=== PATIENT | female | born 1965 | race African-American/Black ===

== ENCOUNTER 2024-12-13 09:18 | Inpatient (IN) | payer MEDICARE, OTHER ==
[~2024-12-13] VITALS: Ht 175.3 cm; Wt 115.5 kg
--- NOTE | 2024-12-13 10:14 | ED.PDOC ---
HPI Comments This is a 59 year old female presenting to the ED with chief complaint of chest pain. Patient reports that she has been experiencing chest pain with associated dizzy spells and fatigue for the past 5 days since visiting family in the [facility]. Patient notes she is currently on Xarelto for previous PE she had. Patient denies any SOB, N/V, abdominal pain, headache, or syncope. Chief Complaint: General Weakness Time Seen by MD: 10:13 Reviewed Notes: Nurses Notes, Medications, Allergies Allergies: Coded Allergies: Morphine (Verified Allergy, Unknown, 12/13/24) Information Source: Patient Mode of Arrival: Ambulatory Severity: Moderate Timing: Hours Duration: Since onset Prehospital treatment: None Location: Chest (L) Radiation: No Radiation Quality: Aching Onset: At Rest Cardiac Risk Factors: HTN PE Risk Factors: None Past Medical History PAST MEDICAL HISTORY: HTN, PE Surgical History: Surgical History (Other): Knee surgery SPECIAL TAX AUDITOR History: Denies all SPECIAL TAX AUDITOR Hx Family History Family History: Reviewed,noncontributory to illness Social History Smoker: Non-Smoker Alcohol: Denies ETOH Use Drugs: Denies Drug Use Lives In: Home Constitutional: reports: fatigue; denies: chills, diaphoresis, fever, malaise, sweats, weakness, others EENTM: denies: blurred vision, double vision, ear bleeding, ear discharge, ear drainage, ear pain, ear ringing, eye pain, eye redness, hearing loss, mouth pain, mouth swelling, nasal discharge, nose bleeding, nose congestion, nose pa in, photophobia, tearing, throat pain, throat swelling, voice changes, others Respiratory: denies: cough, hemoptysis, orthopnea, SOB at rest, shortness of breath, SOB with excertion, stridor, wheezing, others Cardiovascular: reports: chest pain, dizzy spells; denies: diaphoresis, Dyspnea on exertion, edema, irregular heart beat, left arm pain, lightheadedness, palpitations, PND, syncope, others Gastrointestinal: denies: abdomen distended, abdominal pain, blood streaked bowels, constipated, diarrhea, dysphagia, difficulty swallowing, hematemesis, melena, nausea, poor appetite, poor fluid intake, rectal bleeding, rectal pain, vomiting, others Genitourinary: denies: abnormal vagina bleeding, burning, dyspareunia, dysuria, flank pain, frequency, hematuria, incontinence, pain, , vagina discharge, urgency, others Neurological: denies: dizziness, fainting, headache, left sided numbness, left sided weakness, numbness, paresthesia, pre-existing deficit, right sided numbness, right sided weakness, seizure, speech problems, tingling, tremors, weakness, others Musculoskeletal: denies: back pain, gout, joint pain, joint swelling, muscle pain, muscle stiffness, neck pain, others Integumetry: denies: bruises, change in color, change in hair/nails, dryness, laceration, lesions, lumps, rash, wounds, others Allergic/Immunocompromised: denies: Difficulty Healing, Frequent Infections, Hives, Itching, others Hematologic/Lymphatic: denies: anemia, blood clots, easy bleeding, easy bruising, swollen glands, others Endocrine: denies: excessive hunger, excessive sweating, excessive thirst, excessive urination, flushing, intolerance to cold, intolerance to heat, unexplained weight gain, unexplained weight loss, others Psychiatric: denies: anxiety, bipolar disorder, depression, hopeless, panic disorder, schizophrenia, sleepless, suicidal, others All Other Systems: Reviewed and Negative Physical Exam General Appearance: Moderate Distress, Normal HEENT: Normal ENT Inspection, Pharynx Normal, TMs Normal Neck: Full Range of Motion, Non-Tender, Normal, Normal Inspection Respiratory: Chest Non-Tender, Lungs Clear, No Accessory Muscle Use, No Respiratory Distress, Normal Breath Sounds Cardiovascular: No Edema, No JVD, No Murmur, No Gallop, Normal Peripheral Pulses, Regular Rate/Rhythm Breast Exam: Deferred Gastrointestinal: No Organomegaly, Non Tender, No Pulsatile Mass, Normal Bowel Sounds, Soft Genitalia: Deferred Pelvic: Deferred Rectal: Deferred Extremities: No calf tenderness, Normal capillary refill, Normal inspection, Normal range of motion, Non-tender, No pedal edema Musculoskeletal : Apperance: Normal Neurologic: Alert, wildlife conservationist II-XII nml as Tested, No Motor Deficits, Normal Affect, Normal Mood, No Sensory Deficits Cerebellar Function: Normal Reflexes: Normal Skin: Dry, Normal Color, Warm Peripheral Pulses: 3+ Radial (R), 3+ Radial (L) Lymphatic: No Adenopathy Was a procedure done? Was a procedure done?: No CP Differential Dx Differential Diagnosis: A-fib, A-Flutter, Angina, Anxiety / Panic Attack, Atrial Dysrhythmia, Electrolyte Disorder X-Ray, Labs, Meds, VS Vital Signs Date Time Temp Pulse Resp B/P (MAP) Pulse Ox O2 Delivery O2 Flow Rate FiO2 12/13/24 09:22 97.3 73 18 129/91 97 97.3 Lab Test 12/13/24 10:57 Range/Units White Blood Count Pending Red Blood Count Pending Hemoglobin Pending Hematocrit Pending Mean Corpuscular Volume Pending Mean Corpuscular Hemoglobin Pending Mean Corpuscular Hemoglobin Concent Pending Red Cell Distribution Width Pending Platelet Count Pending Mean Platelet Volume Pending Neutrophils (%) (Auto) Pending Lymphocytes (%) (Auto) Pending Monocytes (%) (Auto) Pending Basophils (%) (Auto) Pending Neutrophils # (Auto) Pending Lymphocytes # (Auto) Pending Monocytes # (Auto) Pending Sodium Level Pending Potassium Level Pending Chloride Level Pending Carbon Dioxide Level Pending Anion Gap Pending Blood Urea Nitrogen Pending Creatinine Pending Glomerular Filtration Rate Calc Pending BUN/Creatinine Ratio Pending Serum Glucose Pending Calcium Level Pending Troponin I High Sensitivity Pending Patient alert. Came in for chest pain. Has multiple other symptoms. Saturation pristine on room air. Possibly will need stress test. Abdomen is soft. Establish intravenous access. Was given fluids. Explained to the patient. Continue monitoring. Time of 1ST Reevaluation: 11:11 Reevaluation 1ST: Unchanged Patient Education/Counseling: Diagnosis, Treatment Family Education/Counseling: No Family Present SEPSIS Sepsis Screen Date sepsis recognized/suspect: Dec 13, 2024 Time Sepsis recognized/suspect: 924 Recent Procedure: No On Antibiotic Therapy: No Respiratory Rate >20: No Heart Rate >90: No Temp<36 C (96.8 F) or >38.3 C: No SBP <90 or MAP <65 mmHG: No New Acute Mental Status Change: No Is the patient on CPAP, BIPAP,: No Physician Orders Troponin-I Hs (12/13/24 10:17) Complete Blood Count (12/13/24 10:17) Urinalysis (12/13/24 10:17) Basic Metabolic Panel (12/13/24 10:17) Vital Signs Date Time Temp Pulse Resp B/P (MAP) Pulse Ox O2 Delivery O2 Flow Rate FiO2 12/13/24 09:22 97.3 73 18 129/91 97 97.3 Laboratory Tests Test 12/13/24 10:57 White Blood Count Pending Departure 1 Departure Time of Disposition: 11:36 Impression: Primary Impression: Chest pain of unknown etiology Disposition: ADMITTED INPATIENT Admit to: Med Surg Condition: Guarded Critical Care Note Critical Care Time?: Yes (90 min-critical care time only) Stability Stability form required: No Heart Score Heart Score: Heart Score Response (Comments) Value History Moderate Suspicious 1 EKG Normal 0 Age 45-64 1 Risk Factors 1 or 2 risk factors 1 Troponin Normal limit 0 Total 3 I personally scribed for MARISOL WOODARD MD ([email or web address]) on 12/13/24 at 10:14. Electronically submitted by Sylvain Alves ([email or web address]). MARISOL WOODARD MD Dec 13, 2024 10:14
[2024-12-13 11:41] LABS: Chloride 102 mmol/L (98-107); Potassium 3.7 mmol/L (3.5-5.1); Sodium 140 mmol/L (136-145)
[2024-12-13 11:42] LABS: Anion Gap 8 (5-15); Calcium 9.5 mg/dL (8.7-10.4); Carbon Dioxide 30 mmol/L (20-31)
[2024-12-13] MEDS: SODIUM CHLORIDE 0.9% 1,000 ML IV ONE (11:45)
[2024-12-13 11:47] LABS: BUN/Creatinine Ratio 12.6 (10.0-20.0); Blood Urea Nitrogen 15 mg/dL (9-23); Glucose 92 mg/dL (74-106); Hematocrit 42.6 % (36.0-46.0); Hemoglobin 14.1 g/dL (12.2-16.2); Mean Corpuscular Hemoglobin 27.8 pg (28.0-32.0); Mean Corpuscular Volume 83.7 fL (80.0-100.0); Nucleated Red Blood Cells % 0.0 %
[2024-12-13 12:06] LABS: Urine Protein, UAD Negative (Negative)
[2024-12-13] MEDS ORDERED: ONDANSETRON HCL 4 MG/2 ML VIAL IV PRN (16:45)
[2024-12-13] MEDS ORDERED: NITROGLYCERIN 0.4 MG SL TAB SL PRN (16:45)
[2024-12-13] MEDS ORDERED: MORPHINE SULFATE INJ 2 MG/ml SYRG IV PRN (16:45)
--- NOTE | 2024-12-13 17:37 | DVH ---
CHEST RADIOGRAPH Indication: chest pain Technique: XY CHEST XRAY 1 VIEW Comparison: None FINDINGS: The cardiac silhouette is unremarkable. The lungs demonstrate right midlung atelectasis/scarring. The pulmonary vasculature is unremarkable. There is no pleural effusion. There is no pneumothorax. Aort ic atherosclerotic disease. IMPRESSION: As above
--- NOTE | 2024-12-13 17:42 | DVHHP2 ---
History of Present Illness Reason for Visit: Chest pain History of Present Illness 59-year-old female presents for evaluation of chest pain. Patient reports undergoing a lot of stress due to recent family loss. She reports a three day history of chest pain which she describes as pressure-like substernal nonradiating with associated dizziness and shortness for breath. She also feels anxious. Denies cough or fever. No nausea or vomiting. No other acute complaints reported. Past Medical History Hypertension, rheumatoid arthritis and pulmonary embolism Past Surgical History Knee surgery Family History Noncontributory Smoke: No ALCOHOL: none Drugs: None Lives: with Family Review of Systems Review of Systems Review of systems are currently negative otherwise addressed in HPI. Allergies: Coded Allergies: Morphine (Verified Allergy, Unknown, 12/13/24) Medications Current Medications Medications Dose Ordered Sig/Glenn Route Start Time Stop Time Status Last Admin Dose Admin Aspirin 81 mg DAILY PO 12/14/24 10:00 Atorvastatin Calcium 10 mg HS PO 12/13/24 22:00 Ondansetron HCl 4 mg Q4HP PRN IV 12/13/24 16:45 Acetaminophen 650 mg Q6HP PRN PO 12/13/24 16:45 Nitroglycerin 0.4 mg Q5MINP PRN SL 12/13/24 16:45 Morphine Sulfate 2 mg Q30M PRN IV 12/13/24 16:45 Hold Exam Vital Signs Vital Signs Date Time Temp Pulse Resp B/P (MAP) Pulse Ox O2 Delivery O2 Flow Rate FiO2 12/13/24 14:35 97.5 71 14 155/89 (111) 98 97.5 Exam Gen: 59-year-old female in mild distress Skin: Warm, dry, normal color and texture, no rash. HEENT: Normocephalic atraumatic, mucous membranes moist and pink. Neck: Cervical and supraclavicular nodes normal without enlargement, trachea is midline, thyroid gland is normal without masses. Pulmonary: Clear to auscultation and percussion bilaterally. Cardiac: Regular rate and rhythm. No murmur Abdomen: Soft, nontender, nondistended, bowel sounds present all 4 quadrants, no guarding, no rigidity, no organomegaly. Extremities: No cyanosis, clubbing, no edema Neuro: Cranial nerves II through XII grossly intact, normal affect and speech, no focal motor deficits. Labs/Xrays Labs Test 12/13/24 16:54 12/13/24 10:57 12/13/24 00:00 Range/Units Troponin I High Sensitivity < 3 L </=34 ng/L White Blood Count 5.8 4.4-10.8 10^3/uL Red Blood Count 5.08 4.0-5.20 10^6/uL Hemoglobin 14.1 12.2-16.2 g/dL Hematocrit 42.6 36.0-46.0 % Mean Corpuscular Volume 83.7 80.0-100.0 fL Mean Corpuscular Hemoglobin 27.8 L 28.0-32.0 pg Mean Corpuscular Hemoglobin Concent 33.3 32.0-36.0 g/dL Red Cell Distribution Width 13.6 11.8-14.3 % Platelet Count 277 140-450 10^3/uL Mean Platelet Volume 8.0 6.9-10.8 fL Neutrophils (%) (Auto) 53.3 37.0-80.0 % Lymphocytes (%) (Auto) 35.4 10.0-50.0 % Monocytes (%) (Auto) 10.2 0.0-12.0 % Eosinophils (%) (Auto) 0.6 0.0-7.0 % Basophils (%) (Auto) 0.5 0.0-2.0 % Neutrophils # (Auto) 3.1 1.6-8.6 10 ^3/uL Lymphocytes # (Auto) 2.0 0.4-5.4 10 ^3/uL Monocytes # (Auto) 0.6 0-1.3 10 ^3/uL Eosinophils # (Auto) 0 0-0.8 10 ^3/uL Basophils # (Auto) 0 0-0.2 10 ^3/uL Nucleated Red Blood Cells 0.0 % Sodium Level 140 136-145 mmol/L Potassium Level 3.7 3.5-5.1 mmol/L Chloride Level 102 98-107 mmol/L Carbon Dioxide Level 30 20-31 mmol/L Anion Gap 8 5-15 Blood Urea Nitrogen 15 9-23 mg/dL Creatinine 1.19 H 0.550-1.02 mg/dL Glomerular Filtration Rate Calc 53 >90 mL/min BUN/Creatinine Ratio 12.6 10.0-20.0 Serum Glucose 92 74-106 mg/dL Calcium Level 9.5 8.7-10.4 mg/dL Urine Color Light-yellow Yellow Urine Clarity Clear Clear Urine pH 6.0 5.0-9.0 Urine Specific [place] 1.017 1.001-1.035 Urine Protein Negative Negative Urine Ketones Negative Negative Urine Blood Negative Negative /uL Urine Nitrite Negative Negative Urine Bilirubin Negative Negative Urine Urobilinogen Normal Negative mg/dL Urine Leukocyte Esterase Negative Negative /uL Urine RBC 1 0 - 4 /hpf Urine Microscopic WBC 2 0-5 /HPF Urine Squamous Epithelial Cells Few <5 /hpf Urine Bacteria None seen None Seen /hpf Urine Glucose Normal Normal mg/dL SEPSIS Sepsis Screen Date sepsis recognized/suspect: Dec 13, 2024 Time Sepsis recognized/suspect: 924 Recent Procedure: No On Antibiotic Therapy: No Respiratory Rate >20: No Heart Rate >90: No Temp<36 C (96.8 F) or >38.3 C: No SBP <90 or MAP <65 mmHG: No New Acute Mental Status Change: No Is the patient on CPAP, BIPAP,: No Physician Orders Chest Xray 1 View (12/13/24 16:38) Aspirin Tablet (12/14/24 10:00) Atorvastatin (Lipitor) (12/13/24 22:00) Admit (12/13/24 16:38) Ondansetron Hcl (Zofran) (12/13/24 16:45) Cardiac Diet-2gna,Lofat,Lochol (12/13/24 Dinner) Echo 2d Mode Cardiac Dop (12/13/24 16:38) Condition: Fair (12/13/24 16:38) Acetaminophen Tablet (Tylenol Tablet) (12/13/24 16:45) Bedrest With Bathroom Privileg (12/13/24 16:38) Nitroglycerin Sublingual (Ntrostat Subli (12/13/24 16:45) Morphine Sulfate Injection (12/13/24 16:45) Stat Ekg For Chest Pain (12/13/24 16:38) Notify Md Of Changes From Base (12/13/24 16:38) Sole Trimmer For 24 Hours (12/13/24 16:38) Emergency Dysrhythmia Protocol (12/13/24 16:38) Rhythm Strips Once Every Shift (12/13/24 16:38) Oxygen By Nasal Cannula (12/13/24 16:38) D-Dimer (12/13/24 16:38) Vital Signs Date Time Temp Pulse Resp B/P (MAP) Pulse Ox O2 Delivery O2 Flow Rate FiO2 12/13/24 14:35 97.5 71 14 155/89 (111) 98 97.5 12/13/24 12:18 68 18 158/76 (103) 98 12/13/24 12:18 68 Laboratory Tests Test 12/13/24 10:57 White Blood Count 5.8 10^3/uL (4.4-10.8) Medications Medications Dose Ordered Sig/Glenn Route Start Time Stop Time Status Last Admin Dose Admin Aspirin 325 mg ONCE ONCE PO 12/13/24 11:45 12/13/24 11:46 DC 12/13/24 11:45 325 MG Sodium Chloride 1,000 ml @ 1,000 mls/hr Q1H ONCE IV 12/13/24 11:45 12/13/24 12:44 DC 12/13/24 11:45 1,000 MLS/HR Assessment/Plan Assessment/Plan Assessment Chest pain rule out ACS Hypertension Anxiety Plan Admit the patient to telemetry to the hospitalist Echocardiogram pending Resume home medications Chest x-ray pending Continue treatment per orders. Plan discussed with: Patient My Orders Orders - ANGIE ALEMAN Procedure Category Date Status Time Chest Xray 1 View XY 12/13/24 Resulted 16:38 Aspirin Tablet PHA 12/14/24 In Process 10:00 Atorvastatin (Lipitor) PHA 12/13/24 In Process 22:00 Admit ADMIT 12/13/24 Transmitted 16:38 Ondansetron Hcl PHA 12/13/24 In Process (Zofran) 16:45 Cardiac DIET 12/13/24 Transmitted Diet-2gna,Lofat,Lochol Dinner Echo 2d Mode Cardiac US 12/13/24 Logged DOP 16:38 Condition: Fair ALESSANDRA 12/13/24 In Process 16:38 Acetaminophen Tablet PHA 12/13/24 In Process (Tylenol Tablet) 16:45 Bedrest With Bathroom ALESSANDRA 12/13/24 In Process Privileg 16:38 Nitroglycerin PHA 12/13/24 In Process Sublingual (Ntrostat 16:45 Morphine Sulfate PHA 12/13/24 In Process Injection 16:45 Stat Ekg For Chest ALESSANDRA 12/13/24 In Process Pain 16:38 Notify Of Changes ALESSANDRA 12/13/24 In Process From Base 16:38 Sole Trimmer For [facility] 12/13/24 In Process 24 Hours 16:38 Emergency Dysrhythmia [facility] 12/13/24 In Process Protocol 16:38 Rhythm Strips Once [facility] 12/13/24 In Process Every Shift 16:38 Oxygen By Nasal RT 12/13/24 Transmitted Cannula 16:38 D-Dimer LAB 12/13/24 In Process 16:38 Date of Service: Dec 13, 2024 Billing Provider: ANGIE ALEMAN Common Visit Codes: [id number] INP/OBS CARE (HIGH) ANGIE ALEMAN Dec 13, 2024 17:42
[2024-12-13] MEDS: ALPRAZolam 0.25 MG TAB PO ONE (17:45)
[2024-12-13 18:11] LABS: Triglycerides 113 mg/dL (< 150)
[2024-12-13 18:13] LABS: Cholesterol 167 mg/dL (< 200)
[2024-12-13 18:14] LABS: HDL Cholesterol 36 mg/dL (40-59)
[2024-12-13 18:38] VITALS: BP 115/62; PULSE 67; RESP 18; TEMP 97.9; O2SAT 100
[2024-12-13 21:00] VITALS: BP 134/66; PULSE 67; RESP 18; TEMP 97.9; O2SAT 95
[2024-12-13] MEDS: ATORVASTATIN 20 MG TAB PO SCH (22:17)
[2024-12-13] MEDS: ALPRAZolam 0.25 MG TAB PO PRN (22:48)
[2024-12-14] VITALS (9 sets, daily range): BP systolic 129–142; BP diastolic 73–90; PULSE 66–79; RESP 16–19; TEMP 97.6–98.1; O2SAT 95–100
[2024-12-14] MEDS ORDERED: HYDR25TA4 PO (03:46)
[2024-12-14] MEDS ORDERED: ETAN25IN8 SC (03:46)
[2024-12-14] MEDS ORDERED: LISI20TA56 PO (03:46)
[2024-12-14] MEDS ORDERED: RIVA20TA PO (03:46)
[2024-12-14] MEDS: hydroCHLOROthiazide 25 MG TAB PO SCH (09:55)
[2024-12-14] MEDS: LISINOPRIL 5 MG TAB PO SCH (09:56)
--- NOTE | 2024-12-14 12:46 | DVHPN2 ---
Changes from previous H/P or p: No Changes Objective Vitals Vital Signs Date Time Temp Pulse Resp B/P (MAP) Pulse Ox O2 Delivery O2 Flow Rate FiO2 12/14/24 09:56 140/77 12/14/24 09:00 98.1 75 18 95 98.1 12/14/24 08:00 Room Air* 0 21 Intake/Output Intake and Output 12/14/24 07:00 Intake Total 430 ml Balance 430 ml Intake Oral 430 ml Medications Current Medications Medications Dose Ordered Sig/Glnen Route Start Time Stop Time Status Last Admin Dose Admin Aspirin 81 mg DAILY PO 12/14/24 10:00 12/14/24 09:56 81 MG Atorvastatin Calcium 10 mg HS PO 12/13/24 22:00 12/13/24 22:17 10 MG Ondansetron HCl 4 mg Q4HP PRN IV 12/13/24 16:45 Acetaminophen 650 mg Q6HP PRN PO 12/13/24 16:45 Nitroglycerin 0.4 mg Q5MINP PRN SL 12/13/24 16:45 Morphine Sulfate 2 mg Q30M PRN IV 12/13/24 16:45 Hold Alprazolam 0.25 mg Q12HP PRN PO 12/13/24 17:45 12/13/24 22:48 0.25 MG Rivaroxaban 20 mg QPM PO 12/14/24 18:00 Hydrochlorothiazide 25 mg DAILY PO 12/14/24 10:00 12/14/24 09:55 25 MG Lisinopril 10 mg DAILY PO 12/14/24 10:00 12/14/24 09:56 10 MG Clonidine HCl 0.1 mg Q6HP PRN PO 12/13/24 17:45 Laboratory Results Laboratory Tests 12/13/24 10:57 Coagulation Test 12/13/24 16:54 D-Dimer, Quantitative < 0.19 mg/L FEU (0.0-0.49) Lipid panel Test 12/13/24 16:54 Cholesterol Level 167 mg/dL (< 200) HDL Cholesterol 36 mg/dL (40-59) L Triglycerides Level 113 mg/dL (< 150) HgA1c, TSH Test 12/13/24 16:54 Thyroid Stimulating Hormone (TSH) 4.97 uIU/mL (0.55-4.78) H Urinalysis Test 12/13/24 00:00 Urine Color Light-yellow (Yellow) Urine Clarity Clear (Clear) Urine pH 6.0 (5.0-9.0) Urine Specific [employer] 1.017 (1.001-1.035) Urine Protein Negative (Negative) Urine Ketones Negative (Negative) Urine Blood Negative /uL (Negative) Urine Nitrite Negative (Negative) Urine Bilirubin Negative (Negative) Urine Urobilinogen Normal mg/dL (Negative) Urine Leukocyte Esterase Negative /uL (Negative) Urine RBC 1 /hpf (0 - 4) Urine Microscopic WBC 2 /HPF (0-5) Urine Squamous Epithelial Cells Few /hpf (<5) Urine Bacteria None seen /hpf (None Seen) Urine Glucose Normal mg/dL (Normal) Labs and/or images reviewed: Labs reviewed by me, Image(s) reviewed by me Assessment/Plan Assessment/Plan Chest pain rule out ACS: Troponin negative x3 Aspirin Lipitor consult for Cardiology Dr. Avila Hypertension lisinopril Anxiety History of PE Xarelto x 5 yrs Time spent 48 minutes Plan discussed with: Patient My Orders Orders - EVA JONES MD Procedure Category Date Status Time * Cardiology Consult CONS 12/14/24 Transmitted 12:34 Date of Service: Dec 14, 2024 Billing Provider: EVA JONES MD Common Visit Codes: [id number] INP/OBS CARE(HIGH) EVA JONES MD Dec 14, 2024 12:46
--- NOTE | 2024-12-14 13:56 | DVHINCON2 ---
PRUDENCIO MERCADO RESIDENT 12/14/24 1356: Date Seen: Dec 14, [address] Penn Reason for Consultation Chest pain History of Present Illness This is a 59-year-old female with a past medical history of rheumatoid arthritis on biological therapy and prior pulmonary embolisms (two episodes, 12 and 10 years ago) currently on rivaroxaban (Xarelto) with intermittent compliance. She reports recent emotional stress following the of her sister approximately 20 days ago. Ten days ago, she began experiencing chest pain localized to the sternum, radiating to the left ribs, back, and shoulder. The pain is non- pleuritic, not exertional, and not associated with dyspnea, diaphoresis, or palpitations. She attributes her limited functional class (NYHA II) mainly to arthritic pain. She denies orthopnea, PND, or edema. EKG: Normal sinus rhythm, no ischemic changes. Troponin: Normal. Echocardiogram: Normal LVEF, no regional wall motion abnormalities, preliminary report Past Medical History Past Medical History Hypertension, rheumatoid arthritis and pulmonary embolism Past Surgical History Knee surgery Family History Noncontributory Smoke: No ALCOHOL: none Drugs: None Lives: with Family Family History: FH: cancer G8 SISTER FH: heart attack G8 SISTER Ischemic heart disease Allergies: Coded Allergies: Morphine (Verified Allergy, Unknown, 12/13/24) Home Meds Reported Medications Hydrochlorothiazide (Hydrochlorothiazide) 25 Mg Tab, 1 TAB PO DAILY, #30 TAB 5 Refills 12/14/24 Lisinopril (Lisinopril) 20 Mg Tab, 10 MG PO DAILY, TAB 12/14/24 Rivaroxaban (XARELTO) 20 Mg Tab, 1 TAB PO DAILY, #30 TAB 11 Refills 12/14/24 Etanercept (Enbrel) 25 Mg/0.5 Ml Inj, 50 MG SC ONCE A WEEK, INJ 12/14/24 Current Medications Current Medications Medications (Trade) Dose Ordered Sig/Glenn Route PRN Reason Start Time Stop Time Status Last Admin Aspirin 81 mg DAILY PO 12/14/24 10:00 12/14/24 09:56 Atorvastatin Calcium (Lipitor) 10 mg HS PO 12/13/24 22:00 12/13/24 22:17 Ondansetron HCl (Zofran) 4 mg Q4HP PRN IV NAUSEA / VOMITING 12/13/24 16:45 Acetaminophen (Tylenol Tablet) 650 mg Q6HP PRN PO PAIN SCALE 1-3 OR TEMP>100.4 12/13/24 16:45 Nitroglycerin (Ntrostat Sublingual) 0.4 mg Q5MINP PRN SL FOR CHEST PAIN 12/13/24 16:45 Morphine Sulfate 2 mg Q30M PRN IV FOR CHEST PAIN 12/13/24 16:45 Hold Alprazolam (Xanax Tablet) 0.25 mg Q12HP PRN PO ANXIETY 12/13/24 17:45 12/13/24 22:48 Rivaroxaban (Xarelto Tablet) 20 mg QPM PO 12/14/24 18:00 Hydrochlorothiazide (hydroCHLOROthiazide TABLET) 25 mg DAILY PO 12/14/24 10:00 12/14/24 09:55 Lisinopril (Zestril Tablet) 10 mg DAILY PO 12/14/24 10:00 12/14/24 09:56 Clonidine HCl (Catapres Tablet) 0.1 mg Q6HP PRN PO SBP>160 12/13/24 17:45 Review of Systems Negative for shortness of breath, syncope, dizziness, palpitations, or leg swelling. Positive for chronic joint pain. Vital Signs Vital Signs Date Time Temp Pulse Resp B/P (MAP) Pulse Ox O2 Delivery O2 Flow Rate FiO2 12/14/24 09:56 140/77 12/14/24 09:00 98.1 75 18 95 98.1 12/14/24 08:00 Room Air* 0 21 Physical Exam General: Alert, oriented, in no acute distress. CV: Regular rate and rhythm, no murmurs, rubs, or gallops. No JVD. Resp: Clear to auscultation bilaterally. No rales or wheezes. Extremities: No edema, pulses 2+ bilaterally. MSK: Mild tenderness over left chest wall and shoulder region. Neuro: No focal deficits. Labs/Diagnostic Data Labs Test 12/13/24 16:54 12/13/24 10:57 12/13/24 00:00 Range/Units D-Dimer, Quantitative < 0.19 0.0-0.49 mg/L FEU Troponin I High Sensitivity < 3 L </=34 ng/L Triglycerides Level 113 < 150 mg/dL Cholesterol Level 167 < 200 mg/dL LDL Cholesterol 118 H < 100 mg/dL HDL Cholesterol 36 L 40-59 mg/dL Thyroid Stimulating Hormone (TSH) 4.97 H 0.55-4.78 uIU/mL White Blood Count 5.8 4.4-10.8 10^3/uL Red Blood Count 5.08 4.0-5.20 10^6/uL Hemoglobin 14.1 12.2-16.2 g/dL Hematocrit 42.6 36.0-46.0 % Mean Corpuscular Volume 83.7 80.0-100.0 fL Mean Corpuscular Hemoglobin 27.8 L 28.0-32.0 pg Mean Corpuscular Hemoglobin Concent 33.3 32.0-36.0 g/dL Red Cell Distribution Width 13.6 11.8-14.3 % Platelet Count 277 140-450 10^3/uL Mean Platelet Volume 8.0 6.9-10.8 fL Neutrophils (%) (Auto) 53.3 37.0-80.0 % Lymphocytes (%) (Auto) 35.4 10.0-50.0 % Monocytes (%) (Auto) 10.2 0.0-12.0 % Eosinophils (%) (Auto) 0.6 0.0-7.0 % Basophils (%) (Auto) 0.5 0.0-2.0 % Neutrophils # (Auto) 3.1 1.6-8.6 10 ^3/uL Lymphocytes # (Auto) 2.0 0.4-5.4 10 ^3/uL Monocytes # (Auto) 0.6 0-1.3 10 ^3/uL Eosinophils # (Auto) 0 0-0.8 10 ^3/uL Basophils # (Auto) 0 0-0.2 10 ^3/uL Nucleated Red Blood Cells 0.0 % Sodium Level 140 136-145 mmol/L Potassium Level 3.7 3.5-5.1 mmol/L Chloride Level 102 98-107 mmol/L Carbon Dioxide Level 30 20-31 mmol/L Anion Gap 8 5-15 Blood Urea Nitrogen 15 9-23 mg/dL Creatinine 1.19 H 0.550-1.02 mg/dL Glomerular Filtration Rate Calc 53 >90 mL/min BUN/Creatinine Ratio 12.6 10.0-20.0 Serum Glucose 92 74-106 mg/dL Calcium Level 9.5 8.7-10.4 mg/dL Urine Color Light-yellow Yellow Urine Clarity Clear Clear Urine pH 6.0 5.0-9.0 Urine Specific [place] 1.017 1.001-1.035 Urine Protein Negative Negative Urine Ketones Negative Negative Urine Blood Negative Negative /uL Urine Nitrite Negative Negative Urine Bilirubin Negative Negative Urine Urobilinogen Normal Negative mg/dL Urine Leukocyte Esterase Negative Negative /uL Urine RBC 1 0 - 4 /hpf Urine Microscopic WBC 2 0-5 /HPF Urine Squamous Epithelial Cells Few <5 /hpf Urine Bacteria None seen None Seen /hpf Urine Glucose Normal Normal mg/dL Assessment 1. Atypical chest painlikely musculoskeletal in origin, given reproducible tenderness, non-exertional pattern, and normal cardiac workup. 2. History of pulmonary embolism x2 on rivaroxaban (intermittent compliance). 3. Rheumatoid arthritis on biologic therapy. 4. Recent emotional stress/grief reaction. 5. LVH 6. Hypertension Plan/Recommendation Chest pain appears non-cardiac, likely musculoskeletal or stress-related. HEART score of 2, outpatient stress test will be indicated if symptoms continue. Patient has LVH, is advised to be be compliant with antihypertensive medications. Continue rivaroxaban as prescribed with emphasis on compliance. No evidence of ACS or PE recurrence at this time. Recommend supportive measures, including analgesia for chest wall discomfort and follow-up with primary care/rheumatology for pain management and psychological support. Cardiology will sign off; re-consult if new symptoms or abnormal findings arise. Plan discussed with: Patient NYHA Physical activity limitations: Class2(Slight)fatigue,sob Date of Service: Dec 14, 2024 Billing Provider: ALVARADO BRYANT Sr., MD Cardiology Common Codes: [id number] CARE 30-74 MIN ZEV HERNANDEZ MD 12/14/24 1833: Family History: FH: cancer G8 SISTER FH: heart attack G8 SISTER Ischemic heart disease Allergies: Coded Allergies: Morphine (Verified Allergy, Unknown, 12/13/24) Home Meds Reported Medications Hydrochlorothiazide (Hydrochlorothiazide) 25 Mg Tab, 1 TAB PO DAILY, #30 TAB 5 Refills 12/14/24 Lisinopril (Lisinopril) 20 Mg Tab, 10 MG PO DAILY, TAB 12/14/24 Rivaroxaban (XARELTO) 20 Mg Tab, 1 TAB PO DAILY, #30 TAB 11 Refills 12/14/24 Etanercept (Enbrel) 25 Mg/0.5 Ml Inj, 50 MG SC ONCE A WEEK, INJ 10/24/25 Plan/Recommendation echo shows lvot obstruction needs outpt eval for HCM negative cv workup cont bp meds Plan discussed with: Patient Date of Service: Dec 14, 2024 Billing Provider: ZEV HERNANDEZ MD Cardiology Common Codes: NOT BILLABLE PRUDENCIO MERCADO RESIDENT Dec 14, 2024 13:56 ZEV HERNANDEZ MD Dec 14, 2024 18:33
[2024-12-14 15:27] LABS: Free T3 2.89 pg/mL (2.3-4.2); Free T4 (Free Thyroxine) 0.91 ng/dL (0.89-1.76)
--- NOTE | 2024-12-14 18:11 | DVHSR ---
APPROVED REPORT EXAM: Two-dimensional and M-mode echocardiogram with Doppler and color Doppler. Blood Pressure: 133/90 mmHg INDICATION Chest Pain RISK FACTORS Obesity: Height: 5'9, Weight: 255 DIMENSIONS LVDd4.2 (3.8-5.7cm)LA (2D)3.7 (1.9-4.0cm)Aortic Root2.8 (2.0-3.7cm) LVDs2.7 (2.5-4.0cm)LA (MM) (1.9-4.0cm)Aortic Cusp Exc1.7 (1.5-2.0cm) EF (%) 64.0 (55-70%)Rt. Atrium3.2 (1.9-4.0cm)Asc. Aorta cm IVSd0.9 (0.7-1.1cm)RV (D)3.0 (1.8-2.4cm) PWd1.0 (0.7-1.1cm) Mitral Valve MitralMitral Stenosis E wave0.92m/sMV Mean GR.3mmHg A wave1.11m/sMV Peak GR.95mmHg E/A ratio0.82D MVAcm2 DECEL [id number] 1/2 Timems Aortic Valve Aortic ValveAortic Stenosis V11.27m/Polina Mean GR.7mmHg V21.66m/Polina Peak GR.10mmHg LVOT Diameter1.9 (1.8-2.4cm)Doppler AVA2.17cm2 Pulmonic Valve V20.93m/s Tricuspid Valve TR Velocity2.71m/s [id number] Other Information Technically limited study due to patient position.body habitus. Conclusion lvef 60% moderate LVH mild mitral stenosis mean gradient of 2mmhg mid cavityry gradient noted, mild, this raises the suspicon for HCM workup cardiac MRI is indicated as outpt for better assessment no obvious JOE noted
[2024-12-14] MEDS: RIVAROXABAN 20 MG TAB PO SCH (18:28)
[2024-12-14] MEDS: ACETAMINOPHEN 325 MG TAB PO PRN (23:57)
[2024-12-15 01:00] VITALS: BP 129/82; PULSE 80; RESP 16; TEMP 98.1; O2SAT 95
[2024-12-15 05:00] VITALS: BP 122/73; PULSE 69; RESP 16; TEMP 97.8; O2SAT 95
[2024-12-15 08:00] VITALS: PULSE 66
[2024-12-15 08:07] VITALS: RESP 16; O2SAT 100
[2024-12-15 08:55] VITALS: BP 127/84; PULSE 67; RESP 17; TEMP 97.8; O2SAT 98
--- NOTE | 2024-12-15 10:34 | DVHPN2 ---
Changes from previous H/P or p: No Changes Objective Vitals Vital Signs Date Time Temp Pulse Resp B/P (MAP) Pulse Ox O2 Delivery O2 Flow Rate FiO2 12/15/24 09:50 127/84 12/15/24 08:55 97.8 67 17 98 97.8 12/15/24 08:07 Room Air* 0 21 Intake/Output Intake and Output 12/15/24 07:00 Intake Total 1795 ml Output Total 450 ml Balance 1345 ml Intake Oral 1795 ml Output Urine Total 450 ml # Voids 3 # Bowel Movements 1 Medications Current Medications Medications Dose Ordered Sig/Glenn Route Start Time Stop Time Status Last Admin Dose Admin Aspirin 81 mg DAILY PO 12/14/24 10:00 12/15/24 09:49 81 MG Atorvastatin Calcium 10 mg HS PO 12/13/24 22:00 12/14/24 21:41 10 MG Ondansetron HCl 4 mg Q4HP PRN IV 12/13/24 16:45 Acetaminophen 650 mg Q6HP PRN PO 12/13/24 16:45 12/15/24 06:31 650 MG Nitroglycerin 0.4 mg Q5MINP PRN SL 12/13/24 16:45 Morphine Sulfate 2 mg Q30M PRN IV 12/13/24 16:45 Hold Alprazolam 0.25 mg Q12HP PRN PO 12/13/24 17:45 12/13/24 22:48 0.25 MG Rivaroxaban 20 mg QPM PO 12/14/24 18:00 12/14/24 18:28 20 MG Hydrochlorothiazide 25 mg DAILY PO 12/14/24 10:00 12/15/24 09:49 25 MG Lisinopril 10 mg DAILY PO 12/14/24 10:00 12/15/24 09:50 10 MG Clonidine HCl 0.1 mg Q6HP PRN PO 12/13/24 17:45 Laboratory Results Laboratory Tests 12/13/24 10:57 Urinalysis Test 12/13/24 00:00 Urine Color Light-yellow (Yellow) Urine Clarity Clear (Clear) Urine pH 6.0 (5.0-9.0) Urine Specific [place] 1.017 (1.001-1.035) Urine Protein Negative (Negative) Urine Ketones Negative (Negative) Urine Blood Negative /uL (Negative) Urine Nitrite Negative (Negative) Urine Bilirubin Negative (Negative) Urine Urobilinogen Normal mg/dL (Negative) Urine Leukocyte Esterase Negative /uL (Negative) Urine RBC 1 /hpf (0 - 4) Urine Microscopic WBC 2 /HPF (0-5) Urine Squamous Epithelial Cells Few /hpf (<5) Urine Bacteria None seen /hpf (None Seen) Urine Glucose Normal mg/dL (Normal) Microbiology Microbiology Date/Time Source Procedure Growth Status 12/13/24 22:50 Nose MRSA Screen - Final Complete Labs and/or images reviewed: Labs reviewed by me, Image(s) reviewed by me Assessment/Plan Assessment/Plan Noncardiac chest pain Troponin negative x3 Aspirin Lipitor consult for Cardiology Dr. Avila, echo 60 % ejection fraction, no further cardiac workup Hypertension lisinopril Anxiety History of PE Xarelto x 5 yrs Recent emotional stress Rheumatoid arthritis on biologic therapy LVH: Counseled about taking blood pressure medications regularly Time spent 48 minutes EDWARD Nichols at bedside Plan discussed with: Patient My Orders Orders - EVA JONES MD Procedure Category Date Status Time * Cardiology Consult CONS 12/14/24 Transmitted 12:34 Date of Service: Dec 15, 2024 Billing Provider: EVA JONES MD Common Visit Codes: [id number] INP/OBS CARE(HIGH) EVA JONES MD Dec 15, 2024 10:34
--- NOTE | 2024-12-15 10:37 | DVHDS2 ---
Discharge Summary Date of Admission Dec 13, 2024 at 16:38 Date of Discharge: Dec 15, 2024 Admitting Diagnosis Chest pain Wounds: None Labs/Diagnostic Data: Laboratory Results Test 12/14/24 14:51 12/13/24 16:54 12/13/24 10:57 12/13/24 00:00 Free Thyroxine (T4) Calculated 0.91 ng/dL (0.89-1.76) Free Triiodothyronine (T3) pg/mL 2.89 pg/mL (2.3-4.2) D-Dimer, Quantitative < 0.19 mg/L FEU (0.0-0.49) Troponin I High Sensitivity < 3 ng/L (</=34) Triglycerides Level 113 mg/dL (< 150) Cholesterol Level 167 mg/dL (< 200) LDL Cholesterol 118 mg/dL (< 100) HDL Cholesterol 36 mg/dL (40-59) Thyroid Stimulating Hormone (TSH) 4.97 uIU/mL (0.55-4.78) White Blood Count 5.8 10^3/uL (4.4-10.8) Red Blood Count 5.08 10^6/uL (4.0-5.20) Hemoglobin 14.1 g/dL (12.2-16.2) Hematocrit 42.6 % (36.0-46.0) Mean Corpuscular Volume 83.7 fL (80.0-100.0) Mean Corpuscular Hemoglobin 27.8 pg (28.0-32.0) Mean Corpuscular Hemoglobin Concent 33.3 g/dL (32.0-36.0) Red Cell Distribution Width 13.6 % (11.8-14.3) Platelet Count 277 10^3/uL (140-450) Mean Platelet Volume 8.0 fL (6.9-10.8) Neutrophils (%) (Auto) 53.3 % (37.0-80.0) Lymphocytes (%) (Auto) 35.4 % (10.0-50.0) Monocytes (%) (Auto) 10.2 % (0.0-12.0) Eosinophils (%) (Auto) 0.6 % (0.0-7.0) Basophils (%) (Auto) 0.5 % (0.0-2.0) Neutrophils # (Auto) 3.1 10 ^3/uL (1.6-8.6) Lymphocytes # (Auto) 2.0 10 ^3/uL (0.4-5.4) Monocytes # (Auto) 0.6 10 ^3/uL (0-1.3) Eosinophils # (Auto) 0 10 ^3/uL (0-0.8) Basophils # (Auto) 0 10 ^3/uL (0-0.2) Nucleated Red Blood Cells 0.0 % Sodium Level 140 mmol/L (136-145) Potassium Level 3.7 mmol/L (3.5-5.1) Chloride Level 102 mmol/L (98-107) Carbon Dioxide Level 30 mmol/L (20-31) Anion Gap 8 (5-15) Blood Urea Nitrogen 15 mg/dL (9-23) Creatinine 1.19 mg/dL (0.550-1.02) Glomerular Filtration Rate Calc 53 mL/min (>90) BUN/Creatinine Ratio 12.6 (10.0-20.0) Serum Glucose 92 mg/dL (74-106) Calcium Level 9.5 mg/dL (8.7-10.4) Urine Color Light-yellow (Yellow) Urine Clarity Clear (Clear) Urine pH 6.0 (5.0-9.0) Urine Specific [place] 1.017 (1.001-1.035) Urine Protein Negative (Negative) Urine Ketones Negative (Negative) Urine Blood Negative /uL (Negative) Urine Nitrite Negative (Negative) Urine Bilirubin Negative (Negative) Urine Urobilinogen Normal mg/dL (Negative) Urine Leukocyte Esterase Negative /uL (Negative) Urine RBC 1 /hpf (0 - 4) Urine Microscopic WBC 2 /HPF (0-5) Urine Squamous Epithelial Cells Few /hpf (<5) Urine Bacteria None seen /hpf (None Seen) Urine Glucose Normal mg/dL (Normal) Other Laboratory Tests 12/13/24 10:57 Brief Hx & Hospital Course: 59-year-old female with a history of hypertension anxiety PE on Xarelto rheumatoid arthritis on biologic therapy recent family stress came in complaining of chest pain troponin negative x3 treated with the aspirin Lipitor consult by cardiology Dr. Avila echo 60 percent ejection fraction advised no further cardiac workup being discharged home to resume previous home medications. Reviewed all the home medications and requesting Lipitor his transmitted to the pharmacy RN Magdalena at bedside during discussion of discharge plan. Consults/Reason for consult Cardiology Operations or Procedures Echocardiogram Condition at Discharge: Fair Final Diagnosis/Problems List Noncardiac chest pain Troponin negative x3 Aspirin Lipitor consult for Cardiology Dr. Avila, echo 60 % ejection fraction, no further cardiac workup Hypertension lisinopril Anxiety History of PE Xarelto x 5 yrs Recent emotional stress Rheumatoid arthritis on biologic therapy LVH: Counseled about taking blood pressure medications regularly Discharge Disposition: Home Discharge Instruct/Medications Diet: Cardiac 2g Na,low cholest Activity: Light activity Follow Up/Referral: Resume all previous home medications and follow up with the primary Dr Medications: Lipitor Transmitted to pharmacy Scheduled Etanercept (Enbrel), 50 MG SC ONCE A WEEK, (Reported) Hydrochlorothiazide (Hydrochlorothiazide), 1 TAB PO DAILY, (Reported) Lisinopril (Lisinopril), 10 MG PO DAILY, (Reported) Rivaroxaban (Xarelto), 1 TAB PO DAILY, (Reported) 39 (Time taken for discharge summary 39 minutes) Discharge Statement: "Patient was advised to return to the ER or call 911 if any headaches, dizziness, shortness of breath, chest pain, abdominal pain, bleeding, fevers, or worsening of medical condition. Patient was counseled about treatment plan, medications, possible side effects, patientverbalized understanding. All questions were answered to the best of my ability. This discharge took greater then 30 minutes in planning, reviewing documentation, counseling the patient, and discussing with other team members." ASSESSMENT ASSESSMENT Hospital Course Improved Assessment Noncardiac chest pain Troponin negative x3 Aspirin Lipitor consult for Cardiology Dr. Avila, echo 60 % ejection fraction, no further cardiac workup Hypertension lisinopril Anxiety History of PE Xarelto x 5 yrs Recent emotional stress Rheumatoid arthritis on biologic therapy LVH: Counseled about taking blood pressure medications regularly Date of Service: Dec 15, 2024 Billing Provider: EVA JONES MD Common Visit Codes: [id number]-OGI/OBS DISCH DAY >30min EVA JONES MD Dec 15, 2024 10:37
[2024-12-15 11:05] VITALS: BP 127/84; TEMP 36.6
--- NOTE | 2024-12-16 09:49 | ECG ---
[facility] Test Date: 2024-12-14 Test Time: 13:44:33 Pat Name: ALONSO MONROY Department: Room: 0288T B Gender: F Register Of Deeds: NAHOMI : 1965 Requested By: PRUDENCIO JAMES Order Number: [id number] Reading MD: Ryder Hanna Measurements Intervals [place] Rate: 71 P: 167 MI: 156 QRS: 199 QRSD: 90 T: 128 QT: 408 QTc: 444 Interpretive Statements Right and left arm electrode reversal, interpretation assumes no reversal Sinus or ectopic atrial rhythm Probable lateral infarct, age indeterminate Minimal ST elevation, anterior leads Electronically Signed On 12-17-2024 15:28:52 PDT by Ryder Hanna Please click the below link to view image of tracing.
== END 2024-12-15 12:40 | disposition home or self-care (01) | DRG 206 ==
LOC: ER 09:18 → OVERFLOW 16:38 → TELE-WESTW 12-14 02:10
PROVIDERS: ADMIT Family Medicine; ATTEND Family Medicine
DX: M94.0 Chondrocostal junction syndrome [Tietze] (principal); F41.9 Anxiety disorder, unspecified; I10 Essential (primary) hypertension; M06.9 Rheumatoid arthritis, unspecified; Z82.49 Family history of ischemic heart disease and other diseases of the circulatory system; Z86.711 Personal history of pulmonary embolism; Z88.5 Allergy status to narcotic agent
CPT/HCPCS: 36415; 71045; 80048; 80061; 81001; 84439; 84443; 84481; 84484; 85025; 85379; 87081; 93005; 93306; 96360; 99291; 99292; G0378